=== PATIENT | male | born 1955 | race Caucasian/White ===

== ENCOUNTER 2019-09-29 21:20 | Emergency (ER) | payer BC, MEDICARE ==
[~2019-09-29] VITALS: Ht 170.2 cm; Wt 86.2 kg
[2019-09-29 22:08] LABS: BASO # 0.1 x10^3/uL (0.0-0.2); BASO % 1 % (0-3); EOS # 0.2 x10^3/uL (0.0-0.7); EOS % 2 % (0-3); HEMATOCRIT 40.9 % (39.0-53.0); HEMOGLOBIN 13.5 g/dL (13.0-17.5); LYMPH # 1.3 x10^3/uL (1.0-4.8); LYMPH % 16 % (24-48); MEAN CORPUSCULAR HEMOGLOBIN 31 pg (25-35); MEAN CORPUSCULAR HGB CONC 33 g/dL (31-37); MEAN CORPUSCULAR VOLUME 92 fL (79-100); MONO # 1.1 x10^3/uL (0.0-1.1); MONO % 14 % (0-9); NEUT # 5.5 x10^3/uL (1.8-7.7); NEUT % 67 % (31-73); PLATELET COUNT 182 x10^3/uL (140-400); RED BLOOD COUNT 4.43 x10^6/uL (4.30-5.70); RED CELL DISTRIBUTION WIDTH 15.2 % (11.5-14.5); WHITE BLOOD COUNT 8.2 x10^3/uL (4.0-11.0)
[2019-09-29 22:16] LABS: CALCIUM 9.4 mg/dL (8.5-10.1); CREATININE 1.4 mg/dL (0.7-1.3); GFR 51.2; POTASSIUM 3.6 mmol/L (3.5-5.1)
--- NOTE | 2019-09-29 22:21 | PHYS DOC ---
Past Medical History Past Medical History: Diabetes-Type II, Hypertension Additional Past Medical Histor: PACEMAKER Past Surgical History: Pacemaker Alcohol Use: None Drug Use: None Adult General Chief Complaint Chief Complaint: SYNCOPE HPI HPI 64-year-old male presents to the emergency department with syncopal episode. Patient has underlying history of hypertension, diabetes, pacemaker placement secondary to rhythm issues. Patient states they were playing charTriptease, he bent over and subsequently ended up on the ground, describes no loss of consciousness, states he was able to hear people around him however significant other states that he was, staring off and was not engaging. He denies any chest pain, shortness of breath, nausea or vomiting. He does describe recent change in medication yesterday he was. He said on metoprolol half a tab twice a day it was increased to 1 tab twice a day. He states he was seen by the nurse practitioner yesterday as well with no acute concerns. Review of Systems Review of Systems Constitutional: Denies fever or chills [] Respiratory: Denies cough or shortness of breath [] Cardiovascular: No additional information not addressed in HPI [] GI: Denies abdominal pain, nausea, vomiting, bloody stools or diarrhea [] Musculoskeletal: Denies back pain or joint pain [] Neurologic: Denies headache, focal weakness or sensory changes [] All other systems were reviewed and found to be within normal limits, except as documented in this note. Current Medications Current Medications Current Medications Medications (Trade) Dose Ordered Sig/Han Start Time Stop Time Status Last Admin Dose Admin Info (CONTRAST GIVEN -- Rx MONITORING) 1 each PRN DAILY PRN 09/29/19 23:00 10/01/19 22:59 Iohexol (Omnipaque 350 Mg/ml) 80 ml 1X ONCE 09/29/19 23:00 09/29/19 23:01 DC Allergies Allergies Allergies Coded Allergies Type Severity Reaction Last Updated Verified No Known Drug Allergies 09/29/19 No Physical Exam Physical Exam Constitutional: Well developed, well nourished, no acute distress, non-toxic appearance. [] HENT: Normocephalic, atraumatic, bilateral external ears normal, oropharynx moist, no oral exudates, nose normal. [] Eyes: PERRLA, EOMI, conjunctiva normal, no discharge. [] Cardiovascular:Heart rate regular rhythm, no murmur [] Lungs & Thorax: Bilateral breath sounds clear to auscultation [] Abdomen: Bowel sounds normal, soft, no tenderness, no masses, no pulsatile masses. [] Skin: Warm, dry, no erythema, no rash. [] Extremities: No tenderness, trace edema. [] Neurologic: Alert and oriented X 3, no focal deficits noted. [] Psychologic: Affect normal, judgement normal, mood normal. [] Current Patient Data Vital Signs Vital Signs Date Time Temp Pulse Resp B/P (MAP) Pulse Ox O2 Delivery O2 Flow Rate FiO2 09/29/19 21:20 97.8 77 18 108/70 (83) 97 Room Air 97.8 Lab Values Laboratory Tests Test 09/29/19 21:30 White Blood Count 8.2 x10^3/uL (4.0-11.0) Red Blood Count 4.43 x10^6/uL (4.30-5.70) Hemoglobin 13.5 g/dL (13.0-17.5) Hematocrit 40.9 % (39.0-53.0) Mean Corpuscular Volume 92 fL (79-100) Mean Corpuscular Hemoglobin 31 pg (25-35) Mean Corpuscular Hemoglobin Concent 33 g/dL (31-37) Red Cell Distribution Width 15.2 % (11.5-14.5) H Platelet Count 182 x10^3/uL (140-400) Neutrophils (%) (Auto) 67 % (31-73) Lymphocytes (%) (Auto) 16 % (24-48) L Monocytes (%) (Auto) 14 % (0-9) H Eosinophils (%) (Auto) 2 % (0-3) Basophils (%) (Auto) 1 % (0-3) Neutrophils # (Auto) 5.5 x10^3/uL (1.8-7.7) Lymphocytes # (Auto) 1.3 x10^3/uL (1.0-4.8) Monocytes # (Auto) 1.1 x10^3/uL (0.0-1.1) Eosinophils # (Auto) 0.2 x10^3/uL (0.0-0.7) Basophils # (Auto) 0.1 x10^3/uL (0.0-0.2) D-Dimer (Dianna) 3.04 ug/mlFEU (0.00-0.50) H Sodium Level 142 mmol/L (136-145) Potassium Level 3.6 mmol/L (3.5-5.1) Chloride Level 100 mmol/L (98-107) Carbon Dioxide Level 31 mmol/L (21-32) Anion Gap 11 (6-14) Blood Urea Nitrogen 25 mg/dL (8-26) Creatinine 1.4 mg/dL (0.7-1.3) H Estimated GFR (Cockcroft-Gault) 51.2 BUN/Creatinine Ratio 18 (6-20) Glucose Level 83 mg/dL (70-99) Calcium Level 9.4 mg/dL (8.5-10.1) Magnesium Level 2.1 mg/dL (1.8-2.4) Total Bilirubin 1.1 mg/dL (0.2-1.0) H Aspartate Amino Transferase (AST) 40 U/L (15-37) H Alanine Aminotransferase (ALT) 34 U/L (16-63) Alkaline Phosphatase 187 U/L (46-116) H Troponin I Quantitative < 0.017 ng/mL (0.000-0.055) Total Protein 8.5 g/dL (6.4-8.2) H Albumin 4.1 g/dL (3.4-5.0) Albumin/Globulin Ratio 0.9 (1.0-1.7) L Laboratory Tests 09/29/19 21:30 Laboratory Tests 09/29/19 21:30 EKG EKG EKG reviewed interpretation time 22/10/29, normal sinus rhythm, right axis deviation, heart rate 78, no evidence of ST elevation ID[] Radiology/Procedures Radiology/Procedures [facility] [address] [place] [address] IMAGING REPORT Signed PATIENT: LANDRY HAYS ACCOUNT: [id number] : 1955 LOCATION: ER AGE: 64 SEX: M EXAM STATUS: REG ER ORD. PHYSICIAN: RODOLFO YOON MD REASON: Syncope, + ddimer OMNI 350, 80 ML IV PROCEDURE: CT ANGIOGRAPHY CHEST Study: CT CHEST WITH CONTRAST - PULMONARY ANGIOGRAM History: Syncope. Elevated d-dimer. Comparison: None. Technique: Helical CT of the chest performed after the administration of 80 cc Omnipaque 350 intravenous contrast and timed for angiographic evaluation of the pulmonary arteries per PE protocol. Coronal and sagittal 3D MIP reformations were obtained. One or more of the following individualized dose reduction techniques were utilized for this examination: 1. Automated exposure control 2. Adjustment of the mA and/or kV according to patient size 3. Use of iterative reconstruction technique. Findings: No pulmonary embolism is identified. Normal main pulmonary artery caliber. Scattered vascular calcifications. No aneurysmal dilatation of the thoracic or visualized abdominal aorta. Multilead left chest wall pacer device small pericardial effusion and a suspected degree of pericardial thickening as well without nodularity. No pathologically enlarged mediastinal or hilar lymph nodes. No consolidative changes seen throughout the lungs. No pleural effusion or pneumothorax. No suspicious pulmonary nodule. Small amount of ascites seen adjacent to the liver. No acute osseous abnormality. Scattered degenerative changes. IMPRESSION: 1. No pulmonary embolism is identified. 2. Small volume pericardial fluid and there appears to be a degree of smooth pericardial thickening as well. The findings are not typical of a pericarditis by CT however recommend correlation for any symptomatology that could suggest as such. 3. Small amount of ascites adjacent to the liver without morphologic features of cirrhosis or splenomegaly. This could be related to degree of cardiac dysfunction given the presence of a multilead pacer device. Electronically signed by: CALIXTO ESQUIVEL MD (09/30/2019 1:23 AM) [facility] DICTATED and SIGNED BY: CALIXTO ESQUIVEL MD DATE: 09/30/19 0123 [] Course & Med Decision Making Course & Med Decision Making Pertinent Labs and Imaging studies reviewed. (See chart for details) []64-year-old male presents to the emergency department with syncopal episode. Patient has underlying history of hypertension, diabetes, pacemaker placement secondary to rhythm issues. Patient states they were playing charTriptease, he bent over and subsequently ended up on the ground, describes no loss of consciousness, states he was able to hear people around him however significant other states that he was, staring off and was not engaging. He denies any chest pain, shortness of breath, nausea or vomiting. He does describe recent change in medication yesterday he was. He said on metoprolol half a tab twice a day it was increased to 1 tab twice a day. He states he was seen by the nurse practitioner yesterday as well with no acute concerns. Laboratory values reviewed, troponin negative, interpretation of pacemaker reveals no evidence of arrhythmia per [employer] Elevated d-dimer, CT was performed without evidence of acute PE Discussed findings with patient/family at bedside Return precautions provided Recommend follow up with Cardiology as outpatient Dragtaj Disclaimer Dragon Disclaimer This electronic medical record was generated, in whole or in part, using a voice recognition dictation system. Departure Departure Impression: Primary Impression: Syncope Disposition: 01 HOME, SELF-CARE Condition: IMPROVED Patient Instructions: Syncope, [id number] Additional Instructions: Recommend follow up with PCP 3 - 5 days Return to the ER with worsening symptoms, intractable pain, fever, altered mental status Tylenol/Motrin as needed for pain CTA chest negative for acute PE Troponin negative for elevation Interrogation of pacemaker shows no rhythm abnormality Recommend decreasing dose of metoprolol to 1/2 tab po BID as previous dose Problem Qualifiers Primary Impression: Syncope Syncope type: vasovagal syncope Qualified Codes: R55 - Syncope and collapse RODOLFO YOON MD Sep 29, 2019 22:21
[2019-09-29 22:22] LABS: ALBUMIN 4.1 g/dL (3.4-5.0); ALBUMIN/GLOBULIN RATIO 0.9 (1.0-1.7); MAGNESIUM 2.1 mg/dL (1.8-2.4); TOTAL BILIRUBIN 1.1 mg/dL (0.2-1.0); TOTAL PROTEIN 8.5 g/dL (6.4-8.2)
[2019-09-29] MEDS ORDERED: IOHEXOL 350 MG/ML 100 ML VIAL. IV ONE (23:00)
[2019-09-29] MEDS ORDERED: CONTRAST GIVEN. MC PRN (23:00)
--- NOTE | 2019-09-30 01:26 | RAD ---
Study: CT CHEST WITH CONTRAST - PULMONARY ANGIOGRAM History: Syncope. Elevated d-dimer. Comparison: None. Technique: Helical CT of the chest performed after the administration of 80 cc Omnipaque 350 intravenous contrast and timed for angiographic evaluation of the pulmonary arteries per PE protocol. Coronal and sagittal 3D MIP reformations were obtained. One or more of the following individualized dose reduction techniques were utilized for this examination: 1. Automated exposure control 2. Adjustment of the mA and/or kV according to patient size 3. Use of iterative reconstruction technique. Findings: No pulmonary embolism is identified. Normal main pulmonary artery caliber. Scattered vascular calcifications. No aneurysmal dilatation of the thoracic or visualized abdominal aorta. Multilead left chest wall pacer device small pericardial effusion and a suspected degree of pericardial thickening as well without nodularity. No pathologically enlarged mediastinal or hilar lymph nodes. No consolidative changes seen throughout the lungs. No pleural effusion or pneumothorax. No suspicious pulmonary nodule. Small amount of ascites seen adjacent to the liver. No acute osseous abnormality. Scattered degenerative changes. IMPRESSION: 1. No pulmonary embolism is identified. 2. Small volume pericardial fluid and there appears to be a degree of smooth pericardial thickening as well. The findings are not typical of a pericarditis by CT however recommend correlation for any symptomatology that could suggest as such. 3. Small amount of ascites adjacent to the liver without morphologic features of cirrhosis or splenomegaly. This could be related to degree of cardiac dysfunction given the presence of a multilead pacer device. Electronically signed by: CALIXTO ESQUIVEL MD (09/30/2019 1:23 AM) [facility]
[2019-09-30 01:30] VITALS: BP 121/82
--- NOTE | 2019-09-30 07:47 | RAD ---
AP chest. HISTORY: Syncope AP view was taken of the chest. Lungs are clear. Heart is normal in size. There is a left pacemaker with 3 pacing leads. There is no effusion. IMPRESSION: 1. No acute infiltrates. Electronically signed by: Malcolm Dunlap MD (09/30/2019 7:44 AM) [facility]
--- NOTE | 2019-10-01 06:23 | EKG ---
[facility] [address] [place] [address] Test Date: 2019-09-29 Test Time: 21:30:56 Pat Name: LANDRY HAYS Department: Room: Gender: M Mixing Operator: : 1955 Requested By: RODOLFO YOON Order Number: [id number] Reading MD: Measurements Intervals [place] Rate: 77 P: 34 PA: 124 QRS: 118 QRSD: 140 T: -33 QT: 462 QTc: 531 Interpretive Statements SINUS RHYTHM ABNORMAL RIGHT AXIS DEVIATION NON SPECIFIC INTRAVENTRICULAR BLOCK QRS(T) CONTOUR ABNORMALITY CONSIDER ANTEROLATERAL MYOCARDIAL DAMAGE ABNORMAL ECG No previous ECG available for comparison
== END 2019-09-30 01:45 | disposition home or self-care (01) ==
LOC: ER 21:20
DX: R55 Syncope and collapse (principal); E11.9 Type 2 diabetes mellitus without complications; I10 Essential (primary) hypertension; Z95.0 Presence of cardiac pacemaker
CPT/HCPCS: 36415; 71045; 71275; 80053; 83735; 84484; 85025; 85379; 93005; 99285; Q9967